=== PATIENT | female | born 1970 | race Caucasian/White ===

== ENCOUNTER 2020-12-07 13:31 | Outpatient (REF) | payer BC, SELFPAY ==
[2020-12-11 01:26] LABS: HPV mRNA E6/E7 rflx Not Detected (Not Detected)
== END 2020-12-07 13:32 | disposition home or self-care (01) ==
LOC: HO.LAB 13:31
PROVIDERS: PCP Family Medicine; Visit Provider Obstetrics & Gynecology
DX: Z12.4 Encounter for screening for malignant neoplasm of cervix (principal); Z11.51 Encounter for screening for human papillomavirus (HPV); N88.8 Other specified noninflammatory disorders of cervix uteri
CPT/HCPCS: 36415; 57500; 87624; 88142; 88305

== ENCOUNTER 2021-01-04 11:00 | Outpatient (REF) | payer BC, SELFPAY ==
--- NOTE | ~2021-01-04 | US_ITS ---
EXAMINATION: PELVIC ULTRASOUND CLINICAL INFORMATION: Fibroids COMPARISON: Previous pelvic ultrasound most recent January 2019 TECHNIQUE: Transabdominal and transvaginal pelvic ultrasound was performed. Transvaginal exam was performed for better visualization of the uterus and ovaries. FINDINGS: The uterus is anteverted and measures 13.7 x 3.6 x 6.2 cm in dimension. There is a large left solid hypoechoic lesion in the left fundus and upper uterine body suggestive of a fibroid. This is increased recent size from previous exam and measures 6.5 x 6.3 x 6.8 cm compared to 5.6 x 5.7 x 5.7 cm on previous exam. There is a smaller 1.7 x 1.7 x 2.4 cm hypoechoic lesion in the left uterine body suggestive of a fibroid. This is increased in size from 1.6 x 1.5 x 1.4 cm on previous exam. Endometrial thickness is normal measuring 1.1 cm. The ovaries are normal-appearing. The right ovary measures 2.3 x 2.1 x 1.7 cm and the left ovary measures 2.8 x 1.6 x 1.7 cm. There is no fluid in the pelvis. US/US pelvic and transvaginal IMPRESSION: Enlarged fibroid uterus. Fibroids appear increased in size compared to previous exam from January 2019.
== END 2021-01-04 11:01 | disposition home or self-care (01) ==
LOC: HO.US 11:00
PROVIDERS: Visit Provider Obstetrics & Gynecology
DX: D21.9 Benign neoplasm of connective and other soft tissue, unspecified (principal)
CPT/HCPCS: 76830; 76856

== ENCOUNTER → 2021-01-05 14:22 | Outpatient (BNVA) | payer BC, SELFPAY | PROVIDERS: Visit Provider Obstetrics & Gynecology ==

== ENCOUNTER 2023-04-14 10:05 | Outpatient (REF) | payer BC, SELFPAY | END 2023-04-14 10:06 | disposition home or self-care (01) | LOC: HO.LNP 10:05 | PROVIDERS: Visit Provider Advanced Practice Midwife | DX: N93.9 Abnormal uterine and vaginal bleeding, unspecified (principal); N92.0 Excessive and frequent menstruation with regular cycle; D25.9 Leiomyoma of uterus, unspecified; R23.2 Flushing | CPT/HCPCS: 58100; 81025; 88305 ==

== ENCOUNTER 2023-04-14 10:05 | Outpatient (AMB) | payer BC, SELFPAY ==
--- NOTE | 2023-04-14 10:09 | MHC.OFFVIS ---
Intake Vital Signs 04/14/23 10:28 Height 5 ft 6 in Weight 224 lb BMI 36.2 BP 146/90 H Intake Visit Reasons: Heavy bleeding/30 min per BM Intake Note: The patient agreed to use of a medical coordinator pesticide use during this encounter. Scribed for PREMA Schmitt by Olga Cheema medical coordinator pesticide use, on 04/14/2023 at 10:30 am EST Sausage Grinder Required: No Information Interpreted: non-clinical & clinical Nurse Practitioner Adult: Nurse Practitioner Adult Present (Hetal Orantes KAYLYNN) Accompanied by: Self / Same As Patient Allergies Sulfa (Sulfonamide Antibiotics) Allergy (Unknown, Verified 04/14/23 10:28) rash Is last menstrual period known: Yes Last menstrual period: 03/31/23 HPI HPI Comments History of Present Illness Details She presents with complaints of heavy menstrual bleeding. Reports she typically has monthly menses that last approximately 5-6 days with 2 days of heavy bleeding for the past 15 years. She states her LMP was 03/31/23 and was heavier than normal, with heavy bleeding for 5 days. Used a Diva Cup and had to empty it approximately every one hour around the clock. Her bleeding stopped last week. Reports hot flashes in the past. Denies hot flashes currently. Hx of fibroids. She is inquiring about ablation. She was consented for the EMB procedure, and the consent forms were signed. She is agreeable to have the procedure today. All questions were answered. A urine test was obtained and was negative. She denies any risks to . [facility] Medical History History of seasonal allergies Uterine fibroid Surgical History History of cholecystectomy History of nasal polypectomy History of placement of ear tubes History of tonsillectomy Family History Father Lung cancer Prostate cancer Mother Hypertension Maternal Grandmother Colon cancer Maternal Grandfather Colon cancer Paternal Grandmother Ovarian cancer Social History Alcohol intake: current Alcohol intake frequency: holidays/special occasions only Gender identity: Female Female Reproductive History Menstrual Date of last menstrual period: 03/31/23 Review of Systems Const All systems reviewed & are unremarkable except as noted in HPI and below Reports abnormal vaginal bleeding and Reports menorrhagia Physical Exam Vital Signs: Last Vital Signs BP 146/90 H 04/14/23 10:28 BMI result Body Mass Index 36.2 Const General: cooperative, no acute distress, well developed and alert External Female Exam: normal external appearance Speculum Exam - Vagina: normal appearance of the vagina Speculum Exam - Cervix: normal appearance of the cervix Bimanual exam- vagina & uterus: normal bimanual exam, uterine size normal, uterine shape normal and non-tender Bimanual Exam- Adnexa, other: normal adnexae and no masses Office Procedures Endometrial Biopsy Details: She was counseled regarding anticipatory guidance for the procedure including the risks for pain, infection, bleeding, perforation, potential injury to the tissues may include the cervix, uterus, tubes, bladder and bowels. These injuries may include further treatment and evaluation including surgery, blood transfusions, antibiotics, hospitalizations and anesthesia. Permanent injury and scarring can occur. The patient was placed in the dorsal lithotomy position and a sterile speculum inserted. Using aseptic technique for the procedure. The cervix was cleansed with Betadine x 3 swabs. A single toothed tenaculum was placed on the cervix for stabilization and the uterus was sounded to 11 cm with a 4mm pipelle for 3 passes. Minimal bleeding was observed. The patient tolerated the procedure well and was in good condition when leaving the department. The tissue sample was placed in formalin in a patient labeled container by staff assisting and sent to the pathology department for processing and interpretation. The patient tolerated the procedure well. Warnings reviewed with patient. Instructions given to call if temp >100.4, flu like sx, SOB, fatigue, lightheadedness/dizziness, abd pain (worse than cramping), bloating or abd distention, foul odor or abnormal discharge or heavy vaginal bleeding. [id number] Biopsy Results AMB Test Urine AMB Test Urine Negative Last Edit by Hetal Orantes CMA on 04/14/23 10:29 Results Reviewed Results Reviewed: Laboratory Last Values Tst Clinic Negative 04/14/23 10:29 Assessment & Plan Assessment & Plan (1) Heavy menstrual bleeding: Code(s): N92.0 - Excessive and frequent menstruation with regular cycle Plan: Discussed work up including pelvic US, labs (STAT cbc) and EMBx. The EMBx purpose was explained to rule out atypia, hyperplasia and uterine cancer. Reviewed procedure with patient and offered EMB today; she accepts. EMBx done today, see procedure note. Instructed patient nothing in the vagina including: tampons, douching or sex for 3 days. She may take an over the counter mild analgesic such as Tylenol or Advil (if no allergies) per the architect in training?s recommendation on dosing, frequency, and follow the directions completely. Discussed Mirena IUD for cycle control. Offered IUD today; she declines. Handout given today. Will need to have updated mammogram prior to insertion. RTO for test results. (2) Uterine fibroid: Code(s): D25.9 - Leiomyoma of uterus, unspecified Qualifiers: Uterine leiomyoma location: unspecified location Qualified Code(s): D25.9 - Leiomyoma of uterus, unspecified Plan: Discussed work up including pelvic US for stability. Counseled on treatment including IUD, ablation and hysterectomy. Recommended IUD at this time. (3) Hot flashes: Code(s): R23.2 - Flushing Orders: Orders Complete Blood Count no Diff Today N93.9 - Abnormal uterine and vaginal bleeding, unspecified Thyroid Stimulating Hormone Today N92.1 - Excessive and frequent menstruation with irregular cycle Follicle Stimulating Hormone Today R23.2 - Flushing US pelvic and transvaginal Today D25.9 - Leiomyoma of uterus, unspecified, N93.9 - Abnormal uterine and vaginal bleeding, unspecified AMB HCG Urine Test Today Z32.02 - Encounter for test, result negative Surgical Today N93.9 - Abnormal uterine and vaginal bleeding, unspecified Coding Level of Care Code Procedure Only Diagnoses Heavy menstrual bleeding N92.0 Uterine fibroid D25.9 Uterine leiomyoma location: unspecified location Hot flashes R23.2 CPT Codes Endometrial Biopsy - CPT: 67100-[id number] Biopsy ([id number])
[2023-04-14 10:28] VITALS: BP 146/90; BMI 36.2
== END 2023-04-14 11:07 | disposition home or self-care (01) ==
LOC: HO.HWS 10:05
PROVIDERS: Visit Provider Advanced Practice Midwife
DX: N92.0 Excessive and frequent menstruation with regular cycle (principal); D25.9 Leiomyoma of uterus, unspecified; R23.2 Flushing; Z32.02 Encounter for pregnancy test, result negative
CPT/HCPCS: 58100

== ENCOUNTER 2023-04-14 11:11 | Outpatient (REF) | payer BC, SELFPAY ==
[2023-04-14 11:56] LABS: Hematocrit 39.6 % (37.0-47.0); Hemoglobin 12.8 g/dl (12.0-16.0); Mean Corpuscular HGB Conc 32.3 g/dl (31.0-35.0); Mean Corpuscular Hemoglobin 29.5 pg (27.0-33.0); Mean Corpuscular Volume 91.2 fL (80.0-98.0); Mean Platelet Volume 8.8 fL (9.4-12.3); Platelet Count 275 X10*3/uL (160-400); Red Blood Count 4.34 X10*6/uL (4.20-5.50); Red Cell Distribution Width 13.6 % (11.0-16.0); White Blood Count 9.5 X10*3/uL (4.8-10.8)
[2023-04-14 15:19] LABS: Thyroid Stimulating Hormone 1.59 uIU/mL (0.32-4.0)
[2023-04-16 06:38] LABS: Follicle Stimulating Hormone 22.5 mIU/mL
== END 2023-04-14 11:12 | disposition home or self-care (01) ==
LOC: HO.LAB 11:11
PROVIDERS: Visit Provider Advanced Practice Midwife
DX: N92.1 Excessive and frequent menstruation with irregular cycle (principal); N93.9 Abnormal uterine and vaginal bleeding, unspecified; R23.2 Flushing
CPT/HCPCS: 36415; 83001; 84443; 85027

== ENCOUNTER 2023-04-26 11:19 | Outpatient (REF) | payer BC, SELFPAY ==
--- NOTE | ~2023-04-26 | US_ITS ---
EXAMINATION: US PELVIS CLINICAL INFORMATION: Leiomyoma of uterus LMP 03/31/2023 COMPARISON: Pelvic ultrasound 01/04/2021 TECHNIQUE: Ultrasound of the pelvis is performed using both transabdominal and transvaginal transducers along with Doppler. Transvaginal imaging is performed due to inadequate visualization transabdominally. Technically limited transvaginal scanning due to the length of the uterus. FINDINGS: Uterus: The uterus is enlarged, anteverted and measures 14.0 x 4.0 x 6.3 cm. 6.4 x 5.4 x 6.6 cm left fundal fibroid previously measured 6.5 x 6.3 x 6.8 cm. 2.2 x 1.7 x 2.2 cm fibroid in the left posterior uterine body previously measured 1.7 x 1.7 x 1.7 cm. The endometrial thickness is 1.3 cm. The right ovary is normal in appearance and measures 2.0 x 1.9 x 1.6 cm. Volume 3.2 mL. The left ovary is not seen. US/US pelvic and transvaginal IMPRESSION: 1. Enlarged fibroid uterus. 2. Accounting for technical differences in measurement, no significant change in size of largest 6.8 cm fibroid. Possible slight interval increase in size of 2.2 cm fibroid. 3. Normal right ovary. 4. The left ovary is not seen.
== END 2023-04-26 11:20 | disposition home or self-care (01) ==
LOC: HO.US 11:19
PROVIDERS: Visit Provider Advanced Practice Midwife
DX: D25.9 Leiomyoma of uterus, unspecified (principal); N93.9 Abnormal uterine and vaginal bleeding, unspecified
CPT/HCPCS: 76830; 76856

== ENCOUNTER → 2023-05-04 10:18 | Outpatient (BNVA) | payer BC, SELFPAY | PROVIDERS: PCP Nurse Practitioner Family; Visit Provider Advanced Practice Midwife ==

== ENCOUNTER 2023-06-06 08:13 | Outpatient (AMB) | payer BC, SELFPAY ==
--- NOTE | 2023-06-06 08:14 | A.OFFVIS_ITS ---
Intake Vital Signs 06/06/23 08:15 Height 5 ft 6 in Weight 257 lb BMI 41.5 BP 120/84 Intake Visit Reasons: 4-6 weeks IUD Check Intake Note: The patient agreed to use of a health care / medical job titles during this encounter. Scribed for PREMA Schmitt by Suzette Alegria, health care / medical job titles, on 06/06/2023 at 8:22 am EST. Pie Icer Machine: Pie Icer Machine Present (Kelley) Allergies Sulfa (Sulfonamide Antibiotics) Allergy (Unknown, Verified 06/06/23 08:14) rash Is last menstrual period known: Yes Last menstrual period: 05/26/23 HPI HPI Comments History of Present Illness Details She is presenting for IUD check. She had the Mirena IUD placed on 05/04/23. She has no concerns. She denies pain, abnormal discharge, or other c oncerns. She reports mild spotting but menses has improved since insert. [facility] Medical History (Updated 06/06/23 @ 08:28 by Suzette Alegria) Cervical polyp Uterine fibroid History of seasonal allergies Surgical History History of nasal polypectomy History of placement of ear tubes History of tonsillectomy History of cholecystectomy Family History Father Lung cancer Prostate cancer Mother Hypertension Maternal Grandmother Colon cancer Maternal Grandfather Colon cancer Paternal Grandmother Ovarian cancer Social History Alcohol intake: current Alcohol intake frequency: holidays/special occasions only Gender identity: Female Female Reproductive History Menstrual Duration of menses: 3-5 days Date of last menstrual period: 05/26/23 control method: progestin IUCD (Mirena 05/04/23; IUD strings visible 06/06/23) Physical Exam Vital Signs: Last Vital Signs BP 120/84 06/06/23 08:15 BMI result Body Mass Index 41.5 Const General: cooperative, healthy appearing, comfortable, no acute distress, well developed, alert and awake Other: General: Yes bladder normal to palpation External Female Exam: normal external appearance and normal appearance of the urethra Speculum Exam - Vagina: normal appearance of the vagina, normal palpation and normal vaginal discharge Speculum Exam - Cervix: normal appearance of the cervix, normal palpation and Other cervical findings present (IUD strings visible) Bimanual exam- vagina & uterus: normal bimanual exam, normal palpation, bladder normal to palpation and normal palpation Bimanual Exam- Adnexa, other: normal adnexae and no masses Results Reviewed Results Reviewed: Collected: 12/07/20 Location: .LAB Received: 12/08/20 Diagnosis Cervical polyp: Endocervical polyp; no atypia or malignancy identified. Clinical History Cervical polyp Microscopic Description Microscopic sections reviewed. Material Received Cervical mass Gross Description Received in formalin labeled Cervical polyp is a 5.5 x 0.3 - 0.9 x 0.3 - 0.5 cm., focally congested and hemorrhagic, jay and maroon-brown polypoid portion of tissue, along with scant mucus and blood, which is sectioned and entirely submitted in a single cassette labeled A. CEDS Assessment & Plan Assessment & Plan (1) IUD surveillance: Code(s): Z30.431 - Encounter for routine checking of intrauterine contraceptive device Plan: Discussed: Bleeding tends to taper down, some women do not bleed at all for months, some have unscheduled and random bleeding. Monitor bleeding and cramps for the next 1-2 months. Schedule AG, she is considering care in [place] where she lives. Advised: Mammogram yearly. Coding Level of Care Code Est Pt Level 2 (35225) Diagnoses IUD surveillance Z30.431
[2023-06-06 08:15] VITALS: BP 120/84; BMI 41.5
== END 2023-06-06 09:40 | disposition home or self-care (01) ==
PROVIDERS: PCP Nurse Practitioner Family; Visit Provider Advanced Practice Midwife
DX: Z30.431 Encounter for routine checking of intrauterine contraceptive device (principal)
CPT/HCPCS: 99212

== ENCOUNTER → 2023-06-06 08:13 | Outpatient (BNVA) | payer BC, SELFPAY | PROVIDERS: PCP Nurse Practitioner Family; Visit Provider Advanced Practice Midwife ==

== ENCOUNTER 2023-10-12 10:27 | Outpatient (REF) | payer BC, SELFPAY ==
[2023-10-13 13:59] LABS: BV Int Neg Control Negative (Negative); BV Int Pos Control Positive (Positive)
== END 2023-10-12 10:28 | disposition home or self-care (01) ==
LOC: HO.LAB 10:27
PROVIDERS: PCP Nurse Practitioner Family; Visit Provider Advanced Practice Midwife
DX: N89.8 Other specified noninflammatory disorders of vagina (principal); L29.2 Pruritus vulvae
CPT/HCPCS: 87480; 87510; 87660

== ENCOUNTER 2023-10-12 10:27 | Outpatient (AMB) | payer BC, SELFPAY ==
--- NOTE | 2023-10-12 10:27 | A.OFFVIS_ITS ---
Intake Vital Signs 10/12/23 10:28 Height 5 ft 6 in Weight 246 lb BMI 39.7 BP 132/94 H Intake Visit Reasons: IUD concerns/questions Architectural Engineering Teacher: Architectural Engineering Teacher Present (Kelley) Allergies amoxicillin Allergy (Intermediate, Verified 10/12/23 10:31) Itching Sulfa (Sulfonamide Antibiotics) Allergy (Unknown, Verified 10/12/23 10:28) rash HPI HPI Comments History of Present Illness Details Patient is here today with concerns that shortly after her Mirena IUD was inserted (04/2023) she noticed vulvar itching. It is most bothersome after waking and going to the bathroom at night, when she returns to bed the itching is most intense interfering with her ability to fall back to sleep, creating her ongoing fatigue. She denies any new soaps laundry detergents or other products. She tried an [id number] yeast treatment without success. Also reports increased anxiety since the IUD was inserted. She denies any stresses, life changes, or events that cause her to feel anxious. She has a talk therapist. She has recently seen a functional health provider who gave her vaginal hydration ovules which contain vitamin E, DHEA, estriol, cocoa butter and Bees wax, along with MenoFem tablets to try. [facility] Medical History (Updated 10/12/23 @ 11:52 by Tessa Argueta CNM) Cervical polyp Uterine fibroid History of seasonal allergies Surgical History History of nasal polypectomy History of placement of ear tubes History of tonsillectomy History of cholecystectomy Family History Father Lung cancer Prostate cancer Mother Hypertension Maternal Grandmother Colon cancer Maternal Grandfather Colon cancer Paternal Grandmother Ovarian cancer Social History Alcohol intake: current Alcohol intake frequency: holidays/special occasions only Gender identity: Female Review of Systems Const All systems reviewed & are unremarkable except as noted in HPI and below Physical Exam Vital Signs: Last Vital Signs BP 132/94 H 10/12/23 10:28 BMI result Body Mass Index 39.7 Const General: cooperative, healthy appearing and no acute distress Orientation/consciousness: patient oriented x3 GI Inspection: Yes normal to inspection Palpation (GI): Soft to palpation and Other GI palpation findings present (Nontender) Rectal Exam - Female: visual inspection normal Other: No erythema, or lesions, prominent labial folds with minimal hair at the external edges may be due to mechanical friction. Minimal skin texture changes consistent with scratching, no excoriations. General: Yes bladder normal to palpation External Female Exam: normal appearance of the urethra Speculum Exam - Vagina: normal appearance of the vagina, normal palpation and normal vaginal discharge Speculum Exam - Cervix: normal appearance of the cervix, normal palpation and Other cervical findings present (IUD strings present) Bimanual exam- vagina & uterus: normal bimanual exam, normal palpation, bladder normal to palpation, normal palpation, uterine shape normal, non-tender and enla rged Bimanual Exam- Adnexa, other: normal adnexae Neuro General: patient oriented x3 Assessment & Plan Assessment & Plan (1) Vulvar itching: Code(s): L29.2 - Pruritus vulvae Plan Discussed: Common causes for vulvar itching may also include hormonal influence from control. She prefers to try a trial of the homeopathic remedies at this time, I agree with this plan and suggest using a cool compress to the area p.r.n. and may also consider Zyrtec without the decongestant for use of an antihistamine benefit to help with itching. Benadryl may also be used as an alternative but not the 1st option and not for snf use. Await culture results. Consider removal of the Mirena as a last resort. Other options for AUB treatment reviewed. Follow-up p.r.n.. All of her questions and concerns were addressed to the best of my ability and shared decision making. She is agreeable to the plan of care. Orders: Orders Bacterial Vaginosis Panel Today N89.8 - Other specified noninflammatory disorders of vagina Coding Level of Care Code Est Pt Level 3 (87067) Diagnoses Vulvar itching L29.2
[2023-10-12 10:28] VITALS: BP 132/94; BMI 39.7
== END 2023-10-12 12:43 | disposition home or self-care (01) ==
LOC: HO.HWS 10:27
PROVIDERS: PCP Nurse Practitioner Family; Visit Provider Advanced Practice Midwife
DX: L29.2 Pruritus vulvae (principal)
CPT/HCPCS: 99213